=== PATIENT | female | born 1990 | race Caucasian/White ===

== ENCOUNTER 2020-03-07 11:17 | Inpatient (IN) | payer OTHER ==
[~2020-03-07] VITALS: Ht 162.6 cm; Wt 62.6 kg
[2020-03-07 11:25] VITALS: Ht 162.6 cm; Wt 62.6 kg
[2020-03-07 12:05] LABS: BASOPHIL % 0.4 % (0-2); PLATELET COUNT 192 x10^3mcL (130-400); RED CELL DISTRIBUTION WIDTH 14.1 % (11.5-14.5)
[2020-03-07 12:10] LABS: microscopic required? NO
[2020-03-07 12:16] LABS: ALBUMIN 3.9 g/dL (3.4-5.0); ALKALINE PHOSPHATASE 58 U/L (46-116); ALT/SGPT 44 U/L (14-59); AST/SGOT 19 U/L (15-37); BILIRUBIN TOTAL 0.3 mg/dL (0.20-1.00); CALCIUM 8.7 mg/dL (8.5-10.1); CARBON DIOXIDE 18.9 mmol/L (21-32); CHLORIDE SERUM 103 mmol/L (98-107); CREATININE SERUM 0.8 mg/dL (0.6-1.0); GFR1 > 60 mL/min; GLUCOSE SERUM 95 mg/dL (74-106); SODIUM SERUM 138 mmol/L (136-145); TOTAL PROTEIN, SERUM 7.4 g/dL (6.4-8.2)
[2020-03-07 12:26] LABS: POTASSIUM SERUM 2.7 mmol/L (3.5-5.1)
[2020-03-07 12:56] LABS: urine erythrocyte NEGATIVE (NEGATIVE)
[2020-03-07 17:22] LABS: MAGNESIUM 1.9 mg/dL (1.8-2.4); PHOSPHOROUS 1.3 mg/dL (2.5-4.9)
[2020-03-07 20:59] LABS: CALCIUM 7.5 mg/dL (8.5-10.1); CARBON DIOXIDE 24.9 mmol/L (21-32); CHLORIDE SERUM 104 mmol/L (98-107); CREATININE SERUM 0.7 mg/dL (0.6-1.0); GFR1 > 60 mL/min; GLUCOSE SERUM 128 mg/dL (74-106); POTASSIUM SERUM 3.8 mmol/L (3.5-5.1); SODIUM SERUM 135 mmol/L (136-145)
[2020-03-07 21:05] VITALS: BP 118/74
[2020-03-07 22:05] VITALS: BP 103/62
[2020-03-08 00:30] VITALS: BP 124/83
[2020-03-08 05:05] VITALS: BP 108/65
[2020-03-08 07:11] LABS: PLATELET COUNT 175 x10^3mcL (130-400); RED CELL DISTRIBUTION WIDTH 13.4 % (11.5-14.5)
[2020-03-08 07:12] LABS: BASOPHIL % 0 % (0-2)
[2020-03-08 07:15] LABS: CALCIUM 8.3 mg/dL (8.5-10.1); CARBON DIOXIDE 18.4 mmol/L (21-32); CHLORIDE SERUM 104 mmol/L (98-107); CREATININE SERUM 0.5 mg/dL (0.6-1.0); GFR1 > 60 mL/min; GLUCOSE SERUM 114 mg/dL (74-106); POTASSIUM SERUM 4.6 mmol/L (3.5-5.1); SODIUM SERUM 137 mmol/L (136-145)
[2020-03-08 07:28] VITALS: BP 107/61; BP 135/75
[2020-03-08 17:04] VITALS: BP 105/62
[2020-03-08 21:09] VITALS: BP 118/76
[2020-03-09 06:07] VITALS: BP 117/77
[2020-03-09 06:43] LABS: BASOPHIL % 0.3 % (0-2); PLATELET COUNT 164 x10^3mcL (130-400)
[2020-03-09 07:32] LABS: RED CELL DISTRIBUTION WIDTH 14.6 % (11.5-14.5)
[2020-03-09 07:33] VITALS: BP 125/76
[2020-03-09 07:55] LABS: CALCIUM 7.9 mg/dL (8.5-10.1); CARBON DIOXIDE 25.7 mmol/L (21-32); CHLORIDE SERUM 106 mmol/L (98-107); CREATININE SERUM 0.6 mg/dL (0.6-1.0); GFR1 > 60 mL/min; GLUCOSE SERUM 93 mg/dL (74-106); POTASSIUM SERUM 3.9 mmol/L (3.5-5.1); SODIUM SERUM 140 mmol/L (136-145)
[2020-03-09 09:10] VITALS: BP 125/76
[2020-03-09] MEDS ORDERED: TOR10 PO (09:40)
== END 2020-03-09 11:23 | disposition home or self-care (01) | DRG 343 ==
LOC: ED 11:17 → MU 16:34
PROVIDERS: Emergency Medicine; Surgery; ADMIT Family Medicine; ATTEND Family Medicine
PROC: 0DTJ4ZZ Resection of Appendix, Percutaneous Endoscopic Approach (ICD-10-PCS; principal; 2020-03-07 17:30)
DX: K35.80 Unspecified acute appendicitis (principal); F41.9 Anxiety disorder, unspecified; E87.6 Hypokalemia; Z79.899 Other long term (current) drug therapy
CPT/HCPCS: G0378; J0694; J1170; J1885; J2270; J2405; J3010; J3475; J3480; J3490; J7030; J7050; J7060; Q0092; Q9967